=== PATIENT | male | born 1955 ===

== ENCOUNTER 2019-03-04 09:19 | Outpatient (CLI) | payer OTHER ==
[2019-03-04 10:50] LABS: Hematocrit 39.6 % (35.5-45.6); Hemoglobin 13.6 gm/dl (11.8-15.2); Mean Corpuscular HGB Conc 34 % (32-34); Mean Corpuscular Volume 89 fl (84-94); Platelet Count 151 K/mm3 (140-440); Red Blood Count 4.47 M/mm3 (3.65-5.03); Red Cell Distribution Width 12.2 % (13.2-15.2)
[2019-03-04 11:10] LABS: Alanine Aminotransferase 24 units/L (7-56); Albumin 4.2 g/dL (3.9-5); BUN/Creatinine Ratio 17; Blood Urea Nitrogen 15 mg/dL (9-20); Calcium 9.6 mg/dL (8.4-10.2); Chol/HDL Ratio 7.65 %; HDL Cholesterol 40 mg/dL (40-59); Hemolysis Index 3; LDL Cholesterol,Direct 238 mg/dL (50-130)
[2019-03-11 06:22] LABS: Vitamin D, 25-OH, D2 SEE SCANNED RESULT
== END 2019-03-04 09:20 | disposition home or self-care (01) ==
LOC: LAB 09:19
PROVIDERS: ATTEND Internal Medicine
DX: Z00.01 Encounter for general adult medical examination with abnormal findings (principal); R73.09 Other abnormal glucose; Z96.651 Presence of right artificial knee joint; Z85.46 Personal history of malignant neoplasm of prostate
CPT/HCPCS: 36415; 80053; 80061; 82306; 82607; 83036; 84443; 85027

== ENCOUNTER 2019-06-05 08:20 | Outpatient (CLI) | payer OTHER ==
[2019-06-05 09:44] LABS: Chol/HDL Ratio 4.25 %
== END 2019-06-05 08:21 | disposition home or self-care (01) ==
LOC: LAB 08:20
PROVIDERS: ATTEND Internal Medicine
DX: E11.65 Type 2 diabetes mellitus with hyperglycemia (principal); E78.5 Hyperlipidemia, unspecified
CPT/HCPCS: 36415; 80061; 83036

== ENCOUNTER 2020-01-11 09:00 | Outpatient (CLI) | payer OTHER ==
[2020-01-11 11:23] LABS: Chol/HDL Ratio 5.18 %
== END 2020-01-11 09:01 | disposition home or self-care (01) ==
LOC: LAB 09:00
PROVIDERS: ATTEND Internal Medicine
DX: E11.65 Type 2 diabetes mellitus with hyperglycemia (principal); E78.5 Hyperlipidemia, unspecified
CPT/HCPCS: 36415; 80061; 83036

== ENCOUNTER 2022-06-20 08:38 | Outpatient (CLI) | payer OTHER ==
[2022-06-20 13:05] LABS: Chol/HDL Ratio 4.63 %
== END 2022-06-20 08:39 | disposition home or self-care (01) ==
LOC: LABHHL 08:38
PROVIDERS: ATTEND Internal Medicine
DX: E11.65 Type 2 diabetes mellitus with hyperglycemia (principal); E78.5 Hyperlipidemia, unspecified
CPT/HCPCS: 36415; 80061; 83036